=== PATIENT | male | born 1975 ===

== ENCOUNTER 2017-10-18 05:38 | Inpatient (IN) | payer OTHER ==
[2017-10-18] VITALS (9 sets, daily range): BP systolic 127–171; BP diastolic 84–108
[~2017-10-18] VITALS: Ht 177.8 cm; Wt 81.2 kg
[~2017-10-18 05:38] MED LIST: ADDERAL20 MG ORAL; ALPRAZOLAM2 M1 ORAL; CLONIDINE HCL0.2 MG PO
[2017-10-18] MEDS ORDERED: LORazepam Inj 2mg/ml 1ml IV PRN (06:30)
[2017-10-18] MEDS ORDERED: Ketorolac 60mg Inj IV PRN (06:30)
[2017-10-18] MEDS ORDERED: fentaNYL 100 mcg/2 mL IV PRN (06:30)
[2017-10-18] MEDS ORDERED: LR 1000ml 1,000 ML IVLG SCH (06:30)
[2017-10-18] MEDS ORDERED: Hydromorphone 0.5mg/0.5ml inj IVP PRN (06:30)
[2017-10-18] MEDS ORDERED: Norco 7.5mg/325mg tab ORAL PRN (06:30)
[2017-10-18] MEDS ORDERED: Ketorolac 30mg Inj IV PRN (06:30)
[2017-10-18] MEDS ORDERED: DiphenhydrAMINE 50mg/ml Inj IVP PRN (06:30)
[2017-10-18] MEDS ORDERED: Midazolam 2mg/2ml Inj IVP PRN (06:30)
[2017-10-18] MEDS ORDERED: Metoclopramide 10mg/2ml Inj IVP PRN (06:30)
[2017-10-18] MEDS ORDERED: Acetaminophen (Non formulary) 100 ML IV ONE (06:30)
[2017-10-18] MEDS ORDERED: Norco 5mg/325mg tab ORAL PRN (06:30)
[2017-10-18] MEDS ORDERED: Atropine Inj 1mg/10ml Syr IV PRN (06:30)
[2017-10-18] MEDS ORDERED: oxyCODONE HCL/Acetaminophen 5/325mg ORAL PRN (06:30)
[2017-10-18] MEDS ORDERED: Thrombin 5000 units TOPIC ONE (06:41)
[2017-10-18] MEDS ORDERED: Surgicel 4in x 8in TOPIC ONE (06:41)
[2017-10-18] MEDS ORDERED: Lidocaine 1% Plain 30 ml INJ ONE ×2 (06:42→07:30)
[2017-10-18] MEDS ORDERED: Bacitracin 50000 Units Vial ONE (06:42)
[2017-10-18] MEDS ORDERED: Vancomycin 1gm inj IVPB ONE (06:42)
[2017-10-18] MEDS ORDERED: Vancomycin 1 GM in D5W 275 ML IVPB ONE (07:00)
[2017-10-18] MEDS ORDERED: ALPRAZolam 0.5mg tab ORAL PRN ×2 (07:00→13:00)
[2017-10-18] MEDS ORDERED: HYDROmorphone 1mg/ml Carpuject SUBQ PRN ×2 (07:00→07:15)
[2017-10-18] MEDS ORDERED: Dexamethasone 20mg/5ml IVP ONE (07:00)
[2017-10-18] MEDS ORDERED: Chloraseptic Spray 20mL Bottle ORAL PRN (07:00)
[2017-10-18] MEDS ORDERED: Norco 10mg/325mg tab ORAL PRN ×3 (07:00→07:15)
[2017-10-18] MEDS ORDERED: ADDERALL 30 MG30 MG ORAL (07:09)
[2017-10-18] MEDS ORDERED: FENTANYL1 EAC1 TOPIC (07:09)
--- NOTE | 2017-10-18 07:15 | Anethesia Preoperative Eval ---
Anesthesia Pre-op PMH/ROS General Date of Evaluation: Oct 18, 2017 Time of Evaluation: 07:24 Anesthesiologist: Bk ASA Score: ASA 2 Mallampati Score Class I : Soft palate, uvula, fauces, pillars visible Class II: Soft palate, uvula, fauces visible Class III: Soft palate, base of uvula visible Class IV: Only hard plate visible Mallampati Classification: Class II Surgeon: Leeroy Diagnosis: Neck Pain Surgical Procedure: ADR C6-7 Anesthesia History: none Family History: no anesthesia problems Allergies: Coded Allergies: PENICILLINS (Verified Allergy, Severe, anaphylactic shock, 10/18/17) Uncoded Allergies: bee sting (Adverse Reaction, Severe, anaphylactic shock , 10/18/17) Medications: see eMAR Past Medical History Cardiovascular: Reports: HTN Other: other - Impressive Opioid Tolerance Anesthesia Pre-op Phys. Exam Physician Exam Last Vital Signs Date Time Temp Pulse Resp B/P (MAP) Pulse Ox O2 Delivery O2 Flow Rate FiO2 10/18/17 06:27 97.8 84 17 134/84 96 Room Air Constitutional: NAD Neurologic: CN 2-12 intact Cardiovascular: RRR Respiratory: CTA Gastrointestinal: S/NT/ND Airway Exam Mallampati Score: Class II MO: full ROM: limited Teeth: intact Anesthesia Pre-op A/P Risk Assessment & Plan Assessment: ASA 2 Plan: GA, BIS, GlideScope Status Change Before Surgery: No Pre-Antibiotics Dru Grams Ancef IV Given Within 1 Hr of Incision: Yes Time Given: 07:46 Froylan Bourgeois MD Oct 18, 2017 07:15
--- NOTE | 2017-10-18 07:16 | Immediate Post-Op Evaluation ---
Immediate Post-Op Evalulation Immediate Post-Op Evalulation Procedure: ADR C6-7 Date of Evaluation: Oct 18, 2017 Time of Evaluation: 10:00 IV Fluids: 1000 LR Blood Products: 0 Estimated Blood Loss: 20 Urinary Output: 0 Blood Pressure Systolic: 157 Blood Pressure Diastolic: 108 Pulse Rate: 84 Respiratory Rate: 16 O2 Sat by Pulse Oximetry: 98 Temperature (Fahrenheit): 97.2 Pain Score (1-10): 3 Nausea: No Vomiting: No Complications 0 Patient Status: awake, reacts, patent, extubated, none Hydration Status: adequate Dru Grams Ancef iV Given Within 1 Hr of Incision: Yes Time Given: 07:46 Froylan Bourgeois MD Oct 18, 2017 07:16
[2017-10-18] MEDS ORDERED: Neostigmine 1mg/ml 10ml Inj ONE (07:30)
[2017-10-18] MEDS ORDERED: LR 1000ml ONE (07:30)
[2017-10-18] MEDS ORDERED: fentaNYL 100 mcg/2 mL IV ONE (07:30)
[2017-10-18] MEDS ORDERED: Zemuron 50mg/5ml Inj IV ONE (07:30)
[2017-10-18] MEDS ORDERED: Labetalol 5mg/ml 20ml vial IV ONE (07:30)
[2017-10-18] MEDS ORDERED: NS Irrig 1000ml ONE (07:30)
[2017-10-18] MEDS ORDERED: Glycopyrrolate 0.2mg/ml 1ml Vial ONE (07:30)
[2017-10-18] MEDS ORDERED: Lidocaine 1% MPF 10mg/ml 5ml ONE (07:30)
[2017-10-18] MEDS ORDERED: Propofol 1,000mg/ 100ml btl IV ONE (07:30)
[2017-10-18] MEDS ORDERED: Sterile Water Irrig 1000ml IRRIG ONE (07:30)
[2017-10-18] MEDS ORDERED: Naloxone 0.4mg/ml Inj ONE (07:30)
[2017-10-18] MEDS ORDERED: Sodium Chloride 10ml vial INJ ONE (07:30)
--- NOTE | 2017-10-18 07:31 | Pre-Procedure Note/Attestation ---
Pre-Procedure Note/Attestation Complete Prior to Procedure Planned Procedure: not applicable Procedure Narrative: ACDF C6-C7 Possible C5-6 An[address] Internal Plare C5-6-7 Indications for Procedure Pre-Operative Diagnosis: Post ttrauma cervical discogenic neck pain Attestation I attest that I discussed the nature of the procedure; its benefits; risks and complications; and alternatives (and the risks and benefits of such alternatives ), prior to the procedure, with the patient (or the patient's legal community health representative). I attest that, if there was a reasonable possibility of needing a blood transfusion, the patient (or the patient's legal community health representative) was given the [place] Department of [facility] Services standardized written summary, pursuant to the Elijah [place] Blood Safety Act ([place] Health and Safety Code # 1645, as amended). I attest that I re-evaluated the patient just prior to the surgery and that there has been no change in the patient's H&P, except as documented below: SHAUN VAN Oct 18, 2017 07:31
[2017-10-18] MEDS ORDERED: Dronabinol 2.5mg Cap ORAL SCH ×4 (09:00→16:00)
--- NOTE | 2017-10-18 09:37 | Brief Operative Note ---
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
[2017-10-18] MEDS ORDERED: D5 1/2NS 1,000 ML IV SCH (09:38)
[2017-10-18] MEDS ORDERED: fentaNYL Destruction MISC SCH ×2 (11:00→12:00)
[2017-10-18] MEDS ORDERED: ceFAZolin sod 1 GM in D5W 55 ML IV SCH (14:00)
--- NOTE | 2017-10-18 15:45 | Consultation ---
DATE OF CONSULTATION: 10/18/2017 CONSULTING PHYSICIAN: Mac Rivera M.D. REFERRING PHYSICIAN: Steve Van M.D. REASON FOR CONSULTATION: Acute pain consult. DEAR DR. STEVE VAN: Thank you kindly for consulting me to evaluate and render an opinion as to how to proceed in the management of the patient's acute postoperative cervical spine pain, status post cervical spine instrumentation surgery today. The patient is a 42-year-old gentleman, who injured his neck after a slip and fall accident. He also injured his lumbar spine. He has been following with an outpatient pain doctor in [place], [place] for the past six months for his severe neck and lower back pain. He has been on considerable doses of pain medication as detailed below. He consulted me to help with this patient's pain control after his neck surgery today. I saw the patient at the bedside with the nurse RN, Zuri. I discussed the case with the intraoperative anesthesiologist, Dr. Bourgeois. I reviewed multiple records from today's date of surgery at [facility], 10/18/2017 including multiple records from the pharmacy, the nursing team, and the surgery suite. I also reviewed multiple preoperative records from Dr. Maguire, including diagnostic testing. PAST MEDICAL HISTORY: 1. Acute postoperative cervical spine pain, status post cervical spine instrumentation surgery by Dr. Steve Van in October 2017. 2. Slip and fall injury. 3. ADHD. 4. Hypertension. 5. Anxiety. SOCIAL HISTORY: The patient is . He denies tobacco usage. He does use marijuana about once per week. ALLERGIES: Penicillin and bee stings. PAST SURGICAL HISTORY: Appendectomy at age 9. MEDICATIONS AT HOME: 1. Clonidine 0.2 mg orally b.i.d. 2. Xanax 2 mg p.o. b.i.d. 3. [place] 10/325 two tablets at a time three to four times per day. 4. Fentanyl patch 100 mcg every 72 hours, used for the past six months since February 2017. 5. Adderall 30 mg daily. FAMILY HISTORY: Noncontributory. REVIEW OF SYSTEMS: Per attending physician. PHYSICAL EXAMINATION: VITAL SIGNS: Age 42, weight 187 kilograms, body mass index 26. Height 178 cm. Vital signs, afebrile, pulse 84, respirations 17, blood pressure 134/84, and oxygen saturation 96% on room air. HEENT: A detailed cervical spine and neurologic exam per Dr. Van. Discomfort with range of motion. Extraocular muscles intact. Pupils are equal, round, and reactive to light and accommodative. CHEST: Clear to auscultation. HEART: Regular rate and rhythm. ABDOMEN: Soft. MUSCULOSKELETAL: Lumbar spine painful, especially in the right flank. The patient has chronic lumbar spine pain. GENITOURINARY: Deferred. DIAGNOSTIC TESTING: Shows a 12-lead EKG, normal sinus rhythm, borderline left atrial enlargement, ventricular rate 63, 10/09/2017. Lumbar discogram 08/06/2017 shows positive severe concordant pain, C6-7. LABORATORY DATA: Laboratory studies from 10/09/2017 show PTT of 30, INR 1.0, glucose 110, BUN 21, creatinine 0.8, sodium 141, potassium 4.3, chloride 104, bicarbonate 22, calcium 9.4, total protein 7.7, albumin 4.8, total bilirubin 0.5, alkaline phosphatase 83, and AST 53, hemoglobin A1c 5.4, ALT 81. White count 6, hematocrit 42, and platelets 251,000. Urinalysis is negative. HIV, hepatitis B and C all negative. IMPRESSION: 1. Acute postoperative cervical spine pain, status post cervical spine instrumentation surgery by Dr. Steve Van October 2017. 2. Slip and fall injury. 3. Attention deficit hyperactivity disorder. 4. Hypertension. 5. Anxiety. TREATMENT RECOMMENDATIONS: The patient has been on high dose narcotics at least for the past six months. He is followed by his pain doctor in [place], [place]. He was started on high dose fentanyl patch 100 mcg/hour every 72 hours. I discussed this high dosing with the intraoperative anesthesiologist, Dr. Bourgeois. Due to this high chronic dosing of fentanyl patch infusion for the past six months, the patient certainly will have tachyphylaxis to the potent narcotics postoperatively. I would restart the fentanyl patch after the patient comes out of surgery. I selected high doses of subcutaneous Dilaudid 2 mg subcutaneously every three hours p.r.n. for severe breakthrough pain. I have chosen the subcutaneous route for better safety efficacy. The patient is benzodiazepine dependent. He uses Xanax 2 mg frequently two times a day. This is a considerable dose. I have increased the frequency to every six hours p.r.n. for anxiety. The patient does admit to using the marijuana at least once per week, I will trial him on 2.5 mg of oral Marinol every eight hours for anxiolysis and baseline pain control. The patient also admits to using [place] 10/325 tablets two tablets at a time, often four times per day. He frequently uses up a bottle of 150 tablets each refill cycle with his pain doctor. The patient does have marginally high liver function tests, which certainly is contributed by the exposure of such high doses of [place] and Tylenol on a chronic basis. I will defer this issue of elevated liver enzymes to his outpatient doctor and because the patient is on high dose narcotics and already sees a pain doctor, who prescribes his medications for the patient for the past six months, I will defer the patient to contact his outpatient pain doctor for narcotic adjustments and medication refills. I have placed the patient on oral Protonix for GI ulcer prophylaxis, and I have added a p.r.n. dose of Mylanta 30 mL every 6 hours p.r.n. for any GERD symptom exacerbation. I have ordered Zofran 4 mg as needed every 4 hours p.r.n. for nausea symptoms. I will ask the nursing team to place a bottle of Chloraseptic spray at the bedside to help with topical sore throat complaints. I have added Benadryl 25 mg orally six hours p.r.n. for itching complaints. I have streamlined the patient's medication list to reduce the risk of medication administration errors and I have spoken with the hospital pharmacist regarding the fentanyl patch usage. Mac Rivera M.D. DR: MINE JOB#: [id number] CC:
--- NOTE | 2017-10-18 17:16 | Operative Note - Dictated ---
DATE OF OPERATION: 10/18/2017 ADMITTING/PREOPERATIVE DIAGNOSES: 1. Diskogenic neck pain. 2. Herniated disk. 3. Neurologic deficit, posttraumatic. POSTOPERATIVE DIAGNOSES: 1. Diskogenic neck pain. 2. Herniated disk. 3. Neurologic deficit, posttraumatic. SURGEON: Steve Umaña, Ph.D., M.D. FILLING AND PACKING SUPERVISOR: NAUN Bangura. ANESTHESIOLOGIST: Froylan Bourgeois M.D. COMPLICATIONS: None. POSTOPERATIVE CONDITION: Good/stable. ESTIMATED BLOOD LOSS: Minimal. PROCEDURES: 1. Ralf-vertebrectomy C6 and ralf-vertebrectomy C7. 2. Interbody reconstruction and fusion C6-C7. 3. Titanium device lordotic with correction deformity. 4. Fusion osteopromotive material placed. 5. Anterior internal fixation C6-C7. 6. SSEP monitoring. 7. High-powered magnification dissection. 8. Intraoperative fluoroscopy interpretation by surgeon. PROCEDURE IN DETAIL: The patient was brought to the operating room and in supine position, general anesthesia with intubation was induced. Intravenous antibiotics and intravenous Decadron were administered after 30 minutes prior to incision time. Decision of incision placement was utilized with a cross-table fluoroscopic imaging with markers in place without penetration of the skin. Level for incision marked with sterile pen left transverse position of the neck. Cervical spine was sterilely prepped and draped free in usual sterile fashion. A transverse incision was sharply placed through dermis and epidermis. Electrocautery dissection of subcutaneous tissue. Platysmas muscle identified, isolated, and transected in line with the incision. Blunt dissection carried medial to the sternocleidomastoid muscle and the carotid sheath through the pretracheal blunt dissection through the deep cervical pretracheal fascia to midline. Spinal needle bent at 90 degrees so as to avoid penetration greater than 3 mm into the space placed under sterile conditions. Cross-table imaging obtained interpreted by surgeons demonstrating the correct level. Level marked. Needle removed. Longus colli muscles elevated 3 mm over the appropriate interval from the medial lateral extent. Retractor placed. Under high-power magnification, ralf-vertebrectomy inferior C6 superior C7 with diskectomy to the posterior longitudinal ligament undertaken. Interpositional grafting with titanium lordotic graft correcting deformity of the appropriate dimensions. Fluoroscopic confirmation of depth. The graft filled with osteopromotive material prior to insertion. Countersunk 1 mm. Fluoroscopic imaging was again obtained under sterile conditions demonstrating excellent positioning. A 10 pounds of traction on the neck was removed. Anterior internal plate fixation in a compressive fashion over the involved interval undertaken and locked into position. Fluoroscopic image obtained and printed. Wound irrigated with antibiotic-containing saline. FloSeal applied followed with 500 mg of vancomycin powder. Reapproximation of the platysmas muscle followed with a running subcuticular suture, transverse surgical strips, and Dermabond. Sterile bandage after Dermabond had dried, maintained in place with tape. The patient was carefully transported to postop recovery in good stable condition. Steve Umaña M.D. DR: KELSI JOB#: [id number] CC:
--- NOTE | 2017-10-19 11:14 | Diagnostic Imaging Report ---
Indication: Neck pain Technique: Intraoperative imaging of the cervical spine with 2 fluoroscopic the catheter images. Fluoroscopy time of 12 seconds and dose of 1 mGy. Comparison: None Findings: Initial image demonstrates endotracheal tube and localization needle at the C6/C7 level. There is anterior cervical discectomy and fusion on the final image although the level is difficult to evaluate secondary to coned-down imaging presumably at the same level. Impression: Intraoperative imaging of the cervical spine as above. Followup imaging recommended as indicated.
--- NOTE | 2017-10-21 14:38 | Discharge Summary ---
Discharge Summary Hospital Course Date of Admission Oct 18, 2017 at 12:05 Date of Discharge Oct 18, 2017 at 14:28 Admitting Diagnosis posttraumatic neck pain Reason for Hospitalization: elective surgery HPI Curtis Vieira is a 42 year old male who was admitted on Oct 18, 2017 at 12:05 for Cervical Herniated Disc Consultations dr Rivera - pain specialist Procedures s/p 10/18/[address] Umaña PROCEDURES: 1. Ralf-vertebrectomy C6 and ralf-vertebrectomy C7. 2. Interbody reconstruction and fusion C6-C7. 3. Titanium device lordotic with correction deformity. 4. Fusion osteopromotive material placed. 5. Anterior internal fixation C6-C7. 6. SSEP monitoring. 7. High-powered magnification dissection. 8. Intraoperative fluoroscopy interpretation by surgeon. Hospital Course s/p surgery course of recovery uneventful pain management pain specialist follows concern with chronic high dose pain tolerance, to avoid tachyphylaxis, Phentanyl restarted postop as per pain specialist neurovascular intact incision with dressing clean, intact ambulated Chloraseptic spray for throat discomfort tolerated diet GI prophylaxis voided freely BP stable with current management stable for dc home and fup as outpatient with surgeon as advised FINAL DIAGNOSIS 1. Diskogenic neck pain. 2. Herniated disk. 3. Neurologic deficit, posttraumatic. 4. s/p ADR C6-7 5. Slip and fall injury. 6. Attention deficit hyperactivity disorder. 7. Hypertension. 8. Anxiety. Discharge Medications Continued Medications: Alprazolam (Alprazolam) 2 Mg Tab.rapdis 2 MG ORAL DAILY, TAB Amphet Asp/Amphet/D-Amphet (Adderall 30 Mg Tablet) 30 Mg Tablet 30 MG ORAL DAILY, TAB Clonidine Hcl (Clonidine Hcl) 0.2 Mg Tablet 0.2 MG PO BID, TAB Fentanyl 50MCG Patch (Fentanyl 50MCG Patch*) 1 Each Patch.td72 1 PATCH TOPIC EVERY 72 HOURS, PATCH Discharge Condition Upon Discharge: stable Discharge Disposition Patient was discharged to Home () Discharge Diagnoses: Discharge Instructions Discharge Instructions Special Instructions I have been assigned to complete a D/C Summary on this account. I was not involved in the patient management Lucretia Cat NP (Vanchtein) Oct 21, 2017 14:38
[2017-10-24 11:51] VITALS: BP 123/78
--- NOTE | 2017-10-24 11:51 | 48 Hour Post Anesthesia Eval ---
Post Anesthesia Evaluation Procedure: ADR C6-7 Date of Evaluation: Oct 24, 2017 Time of Evaluation: 11:00 Blood Pressure Systolic: 123 0: 78 Pulse Rate: 112 Respiratory Rate: 14 Temperature (Fahrenheit): 99 O2 Sat by Pulse Oximetry: 99 Nausea: No Vomiting: No Pain Intensity: 0 Hydration Status: adequate Mental Status/LOC: patient returned to baseline Post-Anesthesia Complications: none Follow-up care needed: patient intructions given Mac Tamez M.D. Oct 24, 2017 11:51
== END 2017-10-18 14:28 | disposition home or self-care (01) | DRG 473 ==
LOC: SUR 05:38 → 3E 12:05
PROC: 0RB30ZZ Excision of Cervical Vertebral Disc, Open Approach (ICD-10-PCS; principal; 2017-10-18 07:00)
PROC: 0RG10A0 Fusion of Cervical Vertebral Joint with Interbody Fusion Device, Anterior Approach, Anterior Column, Open Approach (ICD-10-PCS; principal; 2017-10-18 07:00)
DX: M50.123 Cervical disc disorder at C6-C7 level with radiculopathy (principal); M41.9 Scoliosis, unspecified; I10 Essential (primary) hypertension; F90.9 Attention-deficit hyperactivity disorder, unspecified type; Z91.030 Bee allergy status; W01.0XXS Fall on same level from slipping, tripping and stumbling without subsequent striking against object, sequela; F41.9 Anxiety disorder, unspecified
CPT/HCPCS: 36415; 72040; 76001; 86850; 86900; 86901; 87081; 94003; 94150; J2405; J2710

== ENCOUNTER 2018-05-19 11:39 | Emergency (ER) | payer OTHER ==
[~2018-05-19] VITALS: Ht 177.8 cm; Wt 79.4 kg
[~2018-05-19 11:39] MED LIST changes: +ADDERALL 30 MG30 MG ORAL; +FENTANYL1 EAC1 TOPIC
[2018-05-19 11:56] VITALS: BP 165/103
--- NOTE | 2018-05-19 12:17 | Emergency Room Report ---
History of Present Illness General Chief Complaint: Medication Refill Source: Patient Present Illness HPI 43-year-old male presents emergency department complaining of 10 out of 10 in severity pain to cervical neck area and right shoulder 5 days. Patient states that he ran out of his chronic pain medication. Patient had recent cervical surgery performed here in the hospital this past October. Patient regularly is prescribed fentanyl patches and [place]. Patient states that he has had issues with insurance and he is now having to see a new pain management doctor for which he does not have an appointment for until the . Denies new trauma or fall. Denies numbness tingling or loss of sensation or gross motor movements of the extremities, incontinence of bowel or bladder. Denies CP, Palpitations, LOC, AMS, dizziness, Changes in Vision, weakness or a sudden severe headache. Allergies: Coded Allergies: PENICILLINS (Verified Allergy, Severe, anaphylactic shock, 10/18/17) Uncoded Allergies: bee sting (Adverse Reaction, Severe, anaphylactic shock , 10/18/17) Patient History Past Medical History: see triage record Past Surgical History: none Pertinent Family History: none Reviewed Nursing Documentation: PMH: Agreed; PSxH: Agreed Nursing Documentation-PMH Hx Cardiac Problems: Yes Hx Hypertension: Yes Hx Cancer: No Hx Gastrointestinal Problems: No Hx Neurological Problems: No - Cervical spinal surgery c6-c7 fushion, right rotator cuff tear Review of Systems All Other Systems: negative except mentioned in HPI Physical Exam Vital Signs Date Time Temp Pulse Resp B/P (MAP) Pulse Ox O2 Delivery O2 Flow Rate FiO2 05/19/18 11:50 98.0 101 20 165/103 96 Room Air 98.1 Sp02 EP Interpretation: reviewed, normal General Appearance: no apparent distress, alert, GCS 15, non-toxic Head: normocephalic, atraumatic ENT: hearing grossly normal, normal voice Neck: full range of motion Respiratory: lungs clear, normal breath sounds, speaking full sentences Cardiovascular #1: regular rate, rhythm, no edema Musculoskeletal: back normal, gait/station normal, normal range of motion, tender - C-Spine midline and paraspinal. FROM Neurologic: alert, oriented x3, responsive, motor strength/tone normal, sensory intact, speech normal, grossly normal Psychiatric: judgement/insight normal Skin: normal color, no rash, warm/dry, well hydrated Medical Decision Making PA Attestation Dr. reynolds is my supervising Physician whom patient management has been discussed with. Diagnostic Impression: Primary Impression: Encounter for medication refill ER Course Pt. presents to the ED c/o running out of his pain medication and his soonest appt. with his new pain management is on the . pt takes 50mcg Fentanyl Patches. Ddx considered but are not limited to: drug seeking, OD, medication non- compliance, * Cures Review: pt. regularly rx'd these medications last fill was the of last month. Vital signs: are WNL, pt. is afebrile H&PE are most consistent with request for medication refill temporary supply ORDERS: none required at this time, the diagnosis is clinical ED INTERVENTIONS: None required at this time. DISCHARGE: At this time pt. is stable for d/c to home. Will provide printed patient care instructions, and any necessary prescriptions. Care plan and follow up instructions have been discussed with the patient prior to discharge. Last Vital Signs Date Time Temp Pulse Resp B/P (MAP) Pulse Ox O2 Delivery O2 Flow Rate FiO2 05/19/18 11:56 98.1 88 20 165/103 96 Room Air 98.1 Disposition: HOME, SELF-CARE Condition: Stable Scripts Hydrocodone Bit/Acetaminophen 10-325* (NORCO 10-325*) 1 Each Tablet 1 TAB ORAL Q8HR PRN for For Pain, #10 TAB 0 Refills PRN PAIN Prov: Lea Cardona 05/19/18 Fentanyl 50MCG Patch (FENTANYL 50MCG PATCH*) 1 Each Patch.td72 1 PATCH TOPIC EVERY 72 HOURS, #2 PATCH Prov: Lea Cardona 05/19/18 Patient Instructions: Medicine Refill at the Emergency Department Additional Instructions: Take medications as directed. Follow up with a Primary Care Provider in 3-5 days, even if your symptoms have resolved. Return sooner to ED if new symptoms occur, or current symptoms become worse. Do not drink alcohol, drive, or operate heavy machinery while taking Fentanyl patches, and or [place] as this may cause drowsiness. - Please note that this Emergency Department Report was dictated using Picaticbeading sawyer technology software, occasionally this can lead to erroneous entry secondary to interpretation by the dictation equipment. Lea Cardona May 19, 2018 12:17
[2018-05-19] MEDS ORDERED: FENTANYL1 EAC1 TOPIC (12:26)
[2018-05-19] MEDS ORDERED: NORCO 10-325 T1 EACH ORAL (12:26)
[2018-05-19] MEDS ORDERED: HYDROcodone/Acetamin 10/325 tab ORAL ONE (12:30)
[2018-05-19 12:41] VITALS: BP 165/103
== END 2018-05-19 12:50 | disposition home or self-care (01) ==
LOC: EMR 12:46
DX: R52 Pain, unspecified (principal); Z76.0 Encounter for issue of repeat prescription; Z88.0 Allergy status to penicillin; I10 Essential (primary) hypertension; Z98.1 Arthrodesis status; Z91.030 Bee allergy status
CPT/HCPCS: 99284

== ENCOUNTER 2018-06-20 11:04 | Day surgery (SDC) | payer OTHER ==
[2018-06-20] VITALS (8 sets, daily range): BP systolic 116–168; BP diastolic 67–98
[~2018-06-20] VITALS: Ht 179.1 cm; Wt 78.0 kg
--- NOTE | 2018-06-20 07:23 | Operative Note - PDOC ---
Operative Note Operative Note Pre-op Diagnosis: right shoulder interal derangement Procedure: see op report Post-op Diagnosis: same as pre-op plus Operative Findings: consistent w/pre-op dx studies Anesthesia: regional Specimen: none Complications: none Condition: stable Estimated Blood Loss: none Implant(s) used?: No Andrey Adame MD Jun 20, 2018 07:23
--- NOTE | 2018-06-20 07:23 | Pre-Procedure Note/Attestation ---
Pre-Procedure Note/Attestation Complete Prior to Procedure Planned Procedure: right Procedure Narrative: shoulder arthroscopy, sad, possible rc repair Indications for Procedure Pre-Operative Diagnosis: right shoulder interal derangement Attestation I attest that I discussed the nature of the procedure; its benefits; risks and complications; and alternatives (and the risks and benefits of such alternatives ), prior to the procedure, with the patient (or the patient's legal mechanical service representative). I attest that, if there was a reasonable possibility of needing a blood transfusion, the patient (or the patient's legal mechanical service representative) was given the [facility] standardized written summary, pursuant to the Elijah [place] Blood Safety Act ([place] Health and Safety Code # 1645, as amended). I attest that I re-evaluated the patient just prior to the surgery and that there has been no change in the patient's H&P, except as documented below: Andrey Adame MD Jun 20, 2018 07:22
[~2018-06-20 11:04] MED LIST changes: +Clindamycin 600mg 50 ML IV SCH; +D5 1/2NS 1,000 ML IV SCH; +HYDROmorphone 1mg/ml Carpuject SUBQ PRN; +NORCO 10-325 T1 EACH ORAL; +Norco 5mg/325mg tab ORAL PRN; +Tylenol #3 tab (300mg/30mg) ORAL PRN; +celeBREX 200mg Cap **SURGERY PATIENTS ONLY ORAL SCH; +oxyCONTIN 20mg tab ORAL SCH
[2018-06-20] MEDS ORDERED: FENTANYL1 EAC3 TDERMAL (11:40)
[2018-06-20] MEDS ORDERED: celeBREX 200mg Cap **SURGERY PATIENTS ONLY ORAL ONE (11:43)
[2018-06-20] MEDS ORDERED: oxyCONTIN 20mg tab ORAL ONE (11:43)
[2018-06-20] MEDS ORDERED: Propofol 200mg/20ml IV ONE (13:00)
[2018-06-20] MEDS ORDERED: LR 1000ml ONE (13:00)
[2018-06-20] MEDS ORDERED: Sterile Water For Irrig 2000ml IRRIG ONE (13:00)
[2018-06-20] MEDS ORDERED: NS Irrig 4000ml IRRIG ONE (13:00)
[2018-06-20] MEDS ORDERED: Lidocaine 1% MPF 10mg/ml 5ml ONE (13:16)
[2018-06-20] MEDS ORDERED: Dexamethasone 4mg/ml vial ONE (13:16)
[2018-06-20] MEDS ORDERED: Sodium Chloride 10ml vial INJ ONE (13:16)
[2018-06-20] MEDS ORDERED: Ropivacaine 5mg/ml Vial 30ml INJ ONE (13:17)
[2018-06-20] MEDS ORDERED: Bupivacaine 0.5% Inj 30 ml vial INJ ONE (13:18)
[2018-06-20] MEDS ORDERED: EPINEPHrine 1mg/1ml Amp ONE (13:18)
--- NOTE | 2018-06-20 14:25 | Anethesia Preoperative Eval ---
Anesthesia Pre-op PMH/ROS General Date of Evaluation: Jun 20, 2018 Time of Evaluation: 13:14 Anesthesiologist: Bk ASA Score: ASA 2 Mallampati Score Class I : Soft palate, uvula, fauces, pillars visible Class II: Soft palate, uvula, fauces visible Class III: Soft palate, base of uvula visible Class IV: Only hard plate visible Mallampati Classification: Class II Surgeon: Deep Diagnosis: L Shoulder Pain Surgical Procedure: L Shoulder Arthroscopy Anesthesia History: none Social History: drug use - opioid Tolerance Family History: no anesthesia problems Allergies: Coded Allergies: PENICILLINS (Verified Allergy, Severe, anaphylactic shock, 10/18/17) Uncoded Allergies: bee sting (Adverse Reaction, Severe, anaphylactic shock , 10/18/17) Medications: see eMAR Past Medical History Cardiovascular: Reports: HTN Anesthesia Pre-op Phys. Exam Physician Exam Last Vital Signs Date Time Temp Pulse Resp B/P (MAP) Pulse Ox O2 Delivery O2 Flow Rate FiO2 06/20/18 11:59 Room Air 06/20/18 11:42 97.3 82 18 129/77 (94) 97 97.3 Constitutional: NAD Neurologic: CN 2-12 intact Cardiovascular: RRR Respiratory: CTA Gastrointestinal: S/NT/ND Airway Exam Mallampati Score: Class II MO: full ROM: limited Teeth: intact Anesthesia Pre-op A/P Risk Assessment & Plan Assessment: ASA 2 Plan: GA, BIS, L Supraclavicular Block Status Change Before Surgery: No Pre-Antibiotics Dru Gram Ancef IV Given Within 1 Hr of Incision: Yes Time Given: 13:34 Froylan Bourgeois MD Jun 20, 2018 14:24
--- NOTE | 2018-06-20 14:26 | Immediate Post-Op Evaluation ---
Immediate Post-Op Evalulation Immediate Post-Op Evalulation Procedure: L Shoulder Arthroscopy Date of Evaluation: Jun 20, 2018 Time of Evaluation: 15:49 IV Fluids: 700 LR Blood Products: 0 Estimated Blood Loss: 8 Urinary Output: 0 Blood Pressure Systolic: 168 Blood Pressure Diastolic: 80 Pulse Rate: 84 Respiratory Rate: 16 O2 Sat by Pulse Oximetry: 100 Temperature (Fahrenheit): 97 Pain Score (1-10): 2 Nausea: No Vomiting: No Complications 0 Patient Status: awake, reacts, patent, none Hydration Status: adequate Dru Gram Ancef IV Given Within 1 Hr of Incision: Yes Time Given: 13:04 Froylan Bourgeois MD Jun 20, 2018 14:26
--- NOTE | 2018-06-20 14:27 | 48 Hour Post Anesthesia Eval ---
Post Anesthesia Evaluation Procedure: L Shoulder Arthroscopy Date of Evaluation: Jun 20, 2018 Time of Evaluation: 17:54 Blood Pressure Systolic: 154 0: 78 Pulse Rate: 73 Respiratory Rate: 18 Temperature (Fahrenheit): 98.2 O2 Sat by Pulse Oximetry: 100 Airway: patent Nausea: No Vomiting: No Pain Intensity: 2 Hydration Status: adequate Cardiopulmonary Status: Stable Mental Status/LOC: patient returned to baseline Follow-up Care/Observations: 0 Post-Anesthesia Complications: 0 Follow-up care needed: ready to discharge Froylan Bourgeois MD Jun 20, 2018 14:27
[2018-06-20] MEDS ORDERED: Naloxone 0.4mg/ml Inj ONE (15:21)
--- NOTE | 2018-06-26 09:02 | Operative Note - Dictated ---
DATE OF OPERATION: 06/20/2018 PREOPERATIVE DIAGNOSIS: Right shoulder full-thickness rotator cuff tear. POSTOPERATIVE DIAGNOSES: 1. Right shoulder full-thickness rotator cuff tear. 2. Right shoulder impingement syndrome. PROCEDURES: 1. Right shoulder arthroscopy and extensive intra-articular debridement. 2. Right shoulder arthroscopic rotator cuff repair. 3. Right shoulder subacromial decompression and bursectomy. SURGEON: Andrey Adame M.D. ANESTHESIA: General with interscalene. INDICATION FOR PROCEDURE: The patient is a pleasant gentleman, who has had MRI which showed a full-thickness rotator cuff tear. He failed conservative management and was indicated for right shoulder arthroscopy and rotator cuff repair. Risks, benefits, expectations, and complications of the procedure were discussed in detail and all questions were addressed. DESCRIPTION OF PROCEDURE: After informed consent was obtained, the patient was brought to the operative room. The patient was placed under monitored anesthesia control with interscalene block. The patient was then carefully placed in beach-chair position. Right shoulder was prepped and draped in sterile manner. Time-out was performed. The portal sites were marked and injected with 0.25% Marcaine with epinephrine. Inferolateral stab incision was then made. Trocar was introduced into the shoulder joint. There was no significant chondral damage. The anterior labrum had some fraying along the superior and anterior labrum. The biceps tendon and subscap appeared to be intact. The supraspinatus tendon and infraspinatus was completely torn off the insertion. At this point, a shaver was then placed through the tear and then extensive debridement was performed. The camera was then repositioned in the subacromial space. Complete bursectomy was performed. The undersurface of the acromion was identified. Acromioplasty was tried from lateral to medial and completed from posterior to anterior. Once that was done, 4 anchors were placed along the attachment of the rotator cuff footprint. Once the footprint was recreated, the rotator cuff moved as a unit. At this point, the camera was repositioned. Rotater cuff footprint was recreate the footprint. At this point, the instruments were removed. Portal sites were closed with 3-0 Monocryl sutures. Steri-Strips and a sterile dressing were applied. The patient was awoken and taken to recovery room with stable vital signs. ESTIMATED BLOOD LOSS: None. COMPLICATIONS: None. SPECIMENS: None. IMPLANTS: Include 2 Biomet JuggerKnot anchors and two Biomet lateral row anchors. Andrey Adame M.D. DR: Pablo JOB#: [id number] CC: DINA
== END 2018-06-20 17:05 | disposition home or self-care (01) ==
LOC: SUR 11:04
DX: M75.101 Unspecified rotator cuff tear or rupture of right shoulder, not specified as traumatic (principal); I10 Essential (primary) hypertension; F41.9 Anxiety disorder, unspecified; F90.9 Attention-deficit hyperactivity disorder, unspecified type; F17.210 Nicotine dependence, cigarettes, uncomplicated; Z88.0 Allergy status to penicillin
CPT/HCPCS: 29826; 29827; C1713; J0171; J0690; J1100; J2250; J2310; J2405; J2704; J2795; J3490; J7120; 94003; 94150